=== PATIENT | male | born 1950 | race American Indian/Alaskan Native ===

== ENCOUNTER 2020-02-24 12:47 | Outpatient (CLI) | payer OTHER ==
--- NOTE | 2020-02-24 16:50 | Magnetic Resonance Report ---
MR abdomen wo/w con INDICATION / CLINICAL INFORMATION: Left renal neoplasm. Abdominal pain. TECHNIQUE: Multiplanar, multisequence MR images were obtained. COMPARISON: None available. FINDINGS: Liver, adrenals, spleen, pancreas are unremarkable. There is a 1.5 cm gallstone. The gallbladder is o therwise unremarkable. No biliary dilatation is seen. No free fluid or adenopathy. Within the upper pole cortex of the left kidney, there is a 2.5 cm lesion which is intermediate to lo w signal T2-weighted imaging. There is no signal change between out of phase imaging. There is mild r estricted diffusion. There is mild enhancement after the administration of contrast. There are 2 simp le cysts in the left kidney as well. The right kidney is unremarkable. IMPRESSION: 1. 2.5 cm enhancing solid lesion at the upper pole cortex of the left kidney. No adenopathy is seen. Left renal vein appears patent. 2. Additional, incidental findings as above. Signer Name: Felix Schaefer MD Signed: 02/24/2020 4:46 PM Workstation Name: [id number]
== END 2020-02-24 12:48 | disposition home or self-care (01) ==
LOC: MRI 12:47
PROVIDERS: ATTEND Urology
DX: Z01.89 Encounter for other specified special examinations (principal); N28.1 Cyst of kidney, acquired; K80.80 Other cholelithiasis without obstruction; N28.89 Other specified disorders of kidney and ureter
CPT/HCPCS: 36415; 74183; 82565; 84520; A9577